=== PATIENT | male | born 1935 | race Caucasian/White ===

== ENCOUNTER 2018-09-12 11:55 | Emergency (ER) | payer MEDICARE, MEDICAID ==
[2018-09-12 12:46] LABS: % BASOPHILS 0.5 % (0.0-2.0); % LYMPHOCYTES 16.2 % (20.0-50.0); % MONOCYTES 11.1 % (2.0-10.0); % NEUTROPHILS 70.2 % (40.0-80.0); EOSINOPHILE ABSOLUTE 0.1 Th/cmm (0.1-0.4); HEMATOCRIT 34.4 % (41.0-60); HEMOGLOBIN 11.7 gm/dL (12-16); LYMPHOCYTE ABSOLUTE 1.2 Th/cmm (1.5-3.0); MEAN CELL VOLUME 83.1 fl (80-99); MEAN CORPUSCULAR HEMOGLOBIN 28.3 pg (27.0-31.0); MEAN PLATELET VOLUME 8.6 fl; MONOCYTE ABSOLUTE 0.8 Th/cmm (0.3-1.0); PLATELET COUNT 208 Th/cmm (150-400); RED BLOOD COUNT 4.14 Mil/cmm (3.80-5.80); RED CELL DISTRIBUTION WIDTH 13.7 % (11.5-20.0); WHITE BLOOD COUNT 7.1 Th/cmm (4.8-10.8)
[2018-09-12 12:57] LABS: MAGNESIUM 2.1 mg/dL (1.9-2.7); PHOSPHOROUS 3.7 mg/dL (2.5-5.0)
[2018-09-12 12:59] LABS: ALB/GLOB RATIO 1.4 (1.0-1.8); ALBUMIN 3.7 gm/dL (4.2-5.5); ALKALINE PHOSPHATASE 65 U/L (34-104); ANION GAP 12.7 (7.0-16.0); BILIRUBIN,TOTAL 0.4 mg/dL (0.3-1.0); BUN - UREA NITROGEN 22 mg/dL (7-25); CALCIUM SERUM 8.8 mg/dL (8.6-10.3); CARBON DIOXIDE 24.7 mEq/L (21.0-31.0); CHLORIDE 108 mEq/L (98-107); CREATININE - SERUM 0.9 mg/dL (0.7-1.3); GLUCOSE 106 mg/dL (70-105); POTASSIUM SERUM 4.4 mEq/L (3.5-5.1); SGOT 14 U/L (13-39); SGPT/ALT 9 U/L (7-52); SODIUM SERUM 141 mEq/L (136-145); TOTAL PROTEIN,SERUM 6.3 gm/dL (6.0-8.3)
[2018-09-12 13:11] LABS: URINE SOURCE CLEAN C
--- NOTE | 2018-09-12 13:26 | ED Physician Chart ---
ED Chief Complaint/HPI - Patient Information Date Seen:: 09/12/18 Time Seen:: 12:12 Chief Complaint:: RLE swelling. History of Present Illness:: PATIENT PRESENTS TO THE ER WITH TWO DAY HX OF LOWER EXTREMITY EDEMA AND REDNESS ; MORE ON THE RIGHT; NO TRAUMA, NO OTHER REMARKABLE S/S Allergies:: Allergies Allergy/AdvReac Type Severity Reaction Status Date / Time No Known Allergies Allergy Verified 09/12/18 12:12 Vitals:: Vital Signs - 8 hr 09/12/18 12:12 Temp 97.9 F HR 86 RR 19 BP 139/50 O2 Sat % 99 Historian:: Medical Records Review:: Nurse's Note Reviewed, Transfer documents Reviewed ED Review of Systems - Review of Systems General/Constitutional: No fever, No chills, No weight loss, No weakness, No diaphoresis, No edema, No loss of appetite Skin: Other (painless RLE swelling) Head: No headache, No light-headedness Eyes: No loss of vision, No pain, No diplopia ENT: No earache, No nasal drainage, No sore throat, No tinnitus Neck: No neck pain, No swelling, No thyromegaly, No stiffness, No mass noted Cardio Vascular: No chest pain, No palpitations, No PND, No orthopnea, No edema Pulmonary: No SOB, No cough, No sputum, No wheezing GI: No nausea, No vomiting, No diarrhea, No pain, No melena, No hematochezia, No constipation, No hematemesis G/U: No dysuria, No frequency, No hematuria Musculoskeletal: Other (painless RLE swelling; positive R Cat's; R lateral leg slightly tense without overlying bruising; no evidence of infection or abscess) Endocrine: No polyuria, No polydipsia Psychiatric: No prior psych history, No depression, No anxiety, No suicidal ideation Hematopoietic: No bruising, No lymphadenopathy Allergic/Immuno: No urticaria, No angioedema Neurological: No syncope, No focal symptoms, No weakness, No paresthesia, No headache, No seizure, No dizziness, No confusion, No vertigo ED Past Medical History - Past Medical History Obtainable: No Past Medical History: PUD/GERD, Thyroid disorder, Dementia, Other (Alzheimer's; systolic murmur; muscle weakness; other lack of coordination; cognitive communication deficit; dysphagia, oropharyngeal phase) Psychiatricy History: Other (unspecified psych disorder) Family Medical History - Family Member Mother History Unknown: Yes ED Physical Exam - Physical Examination General/Constitutional: Awake, Well-developed, well-nourished, Alert, No distress, GCS 15, Non-toxic appearing, Ambulatory Head: Atraumatic Eyes: Lids, conjuctiva normal, PERRL, EOMI Skin: Nl inspection, No rash, No skin lesions, No ecchymosis, Well hydrated, No lymphadenopathy Other Skin comments:: painless RLE swelling no evidence of compartment syndrome. no evidence of redness or infection or warmth. NV intact. positive R Cat's. R lateral and medial malleolar areas swollen. ENMT: External ears, nose nl Neck: Nontender, No nuchal rigidity, No stridor Respiratory: Nl effort/Exclusion, Clear to Auscultation, No Wheeze/Rhonchi/Rales Cardio Vascular: RRR, No murmur, gallop, rubs, NL S1 S2 GI: No tenderness/rebounding/guarding, No organomegaly, No hernia, Normal BS's, Nondistended, No mass/bruits, No McBurney tenderness : No CVA tenderness Extremities: Full ROM Other Extremities comments:: painless RLE swelling no evidence of compartment syndrome. no evidence of redness or infection or warmth. NV intact. positive R Cat's. R lateral and medial malleolar areas swollen. AFTER WORK UP WAS NEGATIVE, WE VERIFIED THAT THE PATIENT WAS ABLE TO WALK WITHOUT ANY DIFFICULTY and he was able to do so. Neuro/Psych: Mood normal, Normal gait Misc: Normal back, No paraspinal tenderness ED Labs/Radiology/EKG Results - Lab Results Results: Laboratory Tests 09/12/18 09/12/18 09/12/18 12:36 12:36 12:36 WBC 7.1 RBC 4.14 Hgb 11.7 L Hct 34.4 L MCV 83.1 MCH 28.3 MCHC Differential 34.0 RDW 13.7 Plt Count 208 MPV 8.6 Neutrophils % 70.2 Lymphocytes % 16.2 L Monocytes % 11.1 H Eosinophils % 2.0 Basophils % 0.5 D-Dimer 279 Sodium 141 Potassium 4.4 Chloride 108 H Carbon Dioxide 24.7 Anion Gap 12.7 BUN 22 Creatinine 0.9 Est GFR ( Amer) TNP Est GFR (Non-Af Amer) TNP BUN/Creatinine Ratio 24.4 Glucose 106 H Calcium 8.8 Phosphorus 3.7 Magnesium 2.1 Total Bilirubin 0.4 AST 14 ALT 9 Alkaline Phosphatase 65 Total Protein 6.3 Albumin 3.7 L Globulin 2.6 Albumin/Globulin Ratio 1.4 ED Assessment - Assessment General Assessment: RLE ultrasound (venous and soft tissue): no acute thrombosis at present exam. No fluid collections seen in the right calf proximal to distal. Soft tissue edema notice in the right leg proximal to distal including ankle. Right ankle: soft tissue swelling; somewhat mottle OSTEOPOROSIS; NO DEFINITE OSTEOMYELITIS; no fracture; vascular calcification. Right tibia/fibula: NAD phone call to Dr. Mathews re this patient through service made at 16:25 p.m. I gave report to him of the complete workup. HE AGREES WITH ME THAT THE PATIENT CAN BE SENT BACK TO THE FACILITY WITHOUT ANY NEED FOR TREATMENT. ED Septic Shock - . Is Septic Shock (SBP<90, OR Lactate>4 mmol\L) present?: No - <6hrs of presentation: Vital Signs: Vital Signs - 8 hr 09/12/18 12:12 Temp 97.9 F HR 86 RR 19 BP 139/50 O2 Sat % 99 ED Reassessment (Disposition) - Reassessment Reassessment Condition:: Unchanged - Diagnosis Diagnosis:: Painless right lower extremity swelling WITHOUT ANY EVIDENCE OF FRACTURE, DEEP VENOUS THROMBOSIS (CLOT), COMPARTMENT SYNDROME, HEMATOMA OR INFECTION. Osteoporosis of RLE Anemia - Aftercare/Follow up Instructions Medication Prescribed:: none needed. - Patient Disposition Discharge/Transfer:: [facility] [employer] [facility] - SNF Condition at Disposition:: Stable, Unchanged
[2018-09-12 13:27] LABS: URINE BILIRUBIN NEGATIVE (NEGATIVE); URINE BLOOD TRACE (NEGATIVE); URINE GLUCOSE (UA) NEGATIVE (NEGATIVE); URINE KETONE NEGATIVE (NEGATIVE); URINE LEUKOCYTE ESTERASE NEGATIVE (NEGATIVE); URINE MICROSCOPIC INDICATED? YES; URINE NITRATE NEGATIVE (NEGATIVE); URINE PH 5.5 (4.6 - 8.0); URINE PROTEIN NEGATIVE (NEGATIVE); URINE UROBILINOGEN 0.2 E.U./dL (0.2 - 1.0)
[2018-09-12 13:39] LABS: URINE CLARITY CLEAR (CLEAR); URINE COLOR YELLOW
[2018-09-12 13:40] LABS: URINE BACTERIA FEW /hpf (NONE SEEN); URINE EPITHELIAL CELLS NONE SEEN /lpf (FEW); URINE RBC NONE SEEN /hpf (0-5)
--- NOTE | 2018-09-13 07:56 | Diagnostic Imaging Report ---
Right lower extremity DVT study HISTORY: Swelling right leg with cellulitis COMPARISON: None Technique: Longitudinal and transverse sonographic images of the right lower extremity veins were obtained with doppler analysis. FINDINGS: There is normal compressibility, augmentation and phasicity of the right common femoral, superficial femoral, popliteal, and posterior tibial veins. No thrombus is visualized. There is subcutaneous edema of the right lower extremity including the calf region. IMPRESSION: No evidence of thrombus within the right lower extremity veins. Subcutaneous edema of the right lower extremity including the calf region.
--- NOTE | 2018-09-13 09:18 | Diagnostic Imaging Report ---
Right ankle (3 views) HISTORY: Swelling Generalized soft tissue swelling. Somewhat mottled osteoporosis noted through the ankle region. No acute abnormalities. No fractures. No radiographic evidence of osteomyelitis. Spur formation seen off the plantar aspect of the posterior calcaneus. Extensive vascular calcification noted. IMPRESSION: 1. Soft tissue swelling 2. No acute focal bony abnormalities. 3. Extensive atherosclerotic vascular changes 4. Calcaneal spur formation
--- NOTE | 2018-09-13 09:19 | Diagnostic Imaging Report ---
Right tibia/fibula (2 views) HISTORY: Swelling No acute bony abnormalities. No fractures. Extensive vascular calcification noted. IMPRESSION: 1. No acute focal bony abnormalities 2. Extensive atherosclerotic vascular changes
== END 2018-09-12 18:27 ==
LOC: ER 11:55
DX: M79.89 Other specified soft tissue disorders (principal); M81.0 Age-related osteoporosis without current pathological fracture; D64.9 Anemia, unspecified; K21.9 Gastro-esophageal reflux disease without esophagitis; F03.90 Unspecified dementia, unspecified severity, without behavioral disturbance, psychotic disturbance, mood disturbance, and anxiety; E07.9 Disorder of thyroid, unspecified
CPT/HCPCS: 36415-UA; 73590-TC-RT; 73610-RT-TC; 80053-TC; 81001-TC; 83735-TC; 84100-TC; 85025-TC; 85379-TC; 93971-TC-RT; Z7502